=== PATIENT | male | born 2000 | race Caucasian/White ===

== ENCOUNTER → 2019-05-02 | Outpatient (CLI) | payer OTHER ==
--- NOTE | 2019-05-02 10:02 | KCIC ---
LUMBAR SPINE WO CONTRAST History: Lumbar pain. Radiculopathy. Technique: Multiplanar, multi sequential MR imaging was performed of the lumbar spine. Comparison: Radiographs March 22, 2016 Findings: Normal vertebral body height and alignment. No fracture. Conus terminates at the normal location. No evidence of nerve root clumping. L1-L2: No canal or neuroforaminal narrowing. L2-L3: No canal or neuroforaminal narrowing. L3-L4: Minimal disc bulge. No canal or neuroforaminal narrowing. L4-L5: Small posterior disc bulge. Slight abutment of the descending right L5 nerve root within the subarticular recess. No canal narrowing. Mild facet arthropathy. No neuroforaminal narrowing. L5-S1: Minimal disc bulge. Mild facet arthropathy. No canal or neuroforaminal narrowing. Impression: 1. Small L4-L5 disc bulge contacting the descending right L5 nerve root within the subarticular recess. Correlate for radiculopathy. 2. Mild lower lumbar facet arthropathy. Electronically signed by: Erich Putnam DO (05/02/2019 10:00 AM) [id number]
== END | disposition home or self-care (01) ==
LOC: KCIC MRI 09:13
PROVIDERS: ATTEND Family Medicine
DX: M51.17 Intervertebral disc disorders with radiculopathy, lumbosacral region (principal); M46.87 Other specified inflammatory spondylopathies, lumbosacral region
CPT/HCPCS: 72148